=== PATIENT | male | born 1950 | race Caucasian/White ===

== ENCOUNTER 2025-01-25 18:42 | Emergency (ER) | payer SELFPAY ==
[2025-01-25 18:45] VITALS: BP 150/84
[2025-01-25 19:00] VITALS: BP 142/74; BMI 30.3
--- NOTE | 2025-01-25 19:09 | ED.GENMED ---
History of Present Illness
General
Chief Complaint: Catheter/Tube Problem
Source: patient
Exam Limitations: none
Time Seen by Provider: 01/25/25 19:05
History of Present Illness
History of Present Illness:
See MDM
Past History
Past History
ED Past Medical History: CAD, HTN, Hypercholesterolemia and [place]
ED Past Surgical History: Urological
Social History
Tobacco: Former smoker
Alcohol: Occasional
Drug: None
Personal:
Living: with family
Employment: Employed
Family History
Family History: Early CAD
Phy Exam
Physical Exam
Physical Exam:
See MDM
Course
Orders/Labs/Results
Orders:
Orders
01/25/25 19:09
Catheter [Hanson Placement- Treatment] ONCE
Reason for insertion: Outlet obstruction
01/25/25 19:19
Influenza A+B Rapid Molecular Urgent
DOUGLAS Source: Nasal Swab
Specimen Description:
01/25/25 19:45
0.9% Sodium Chloride 1000 ml [Nss] 1,000 ml IV BOLUS
LevoFLOXacin 500 MG/100 ML [Levaquin] 500 mg in 100 ml IV NOW
01/25/25 20:31
CPK [Creatine Phosphokinase] Urgent
Complete Blood Count/With Diff Urgent
Comprehensive Metabolic Panel Urgent
Urinalysis Reflex To Culture Urgent
Date Specimen was Collected: 01/25/25
Time Specimen was Collected: 19:51
Urine Microscopic Reflex Cult Urgent
Urine Culture Urgent
DOUGLAS Source: U
Specimen Description:
Date Specimen was Collected: 01/25/25
Time Specimen was Collected: 19:51
Abnormal Lab Results
01/25/25
20:31
RBC 4.03 L 10^6/uL
(4.70-6.10)
Hgb 12.0 L g/dL
(13.0-18.0)
Hct 36.7 L %
(39.0-52.0)
MCHC 32.7 L g/dL
(33.0-37.0)
Plt Count 430 H 10^3/uL
(130-400)
Abs Immat Gran (auto) 0.4 H 10^3/uL
(0-0.05)
Absolute Neuts (auto) 6.8 H 10^3/uL
(1.4-6.5)
Immature Gran % 4.4 H %
(0-0.5)
Lymphocytes % 13.5 L %
(20.5-51.1)
BUN 25 H mg/dl
(9-20)
Total Protein 6.1 L g/dl
(6.3-8.2)
Albumin 3.1 L g/dl
(3.5-5.0)
Ur Occult Blood Reflex 4+ A
(Negative)
Leukocyte Esterase Rfl 3+ A
(Negative)
Urine RBC >100 A /HPF
(0-2)
Urine WBC (Reflex) 50-60 A /HPF
(0-5)
Urine Bacteria (Reflex) Moderate A
(Negative)
Urine Albumin (Reflex) 3+ A
(Neg - Trace)
01/25/25 20:31
01/25/25 20:31
Vital Signs
Initial and Last Documented VS:
Initial Vital Signs
Temp Pulse Resp BP Pulse Ox
97.5 F 72 20 150/84 100
01/25/25 18:45 01/25/25 18:45 01/25/25 18:45 01/25/25 18:45 01/25/25 18:45
Last Documented Vital Signs
Temp Pulse Resp BP Pulse Ox
97.5 F 72 20 157/70 93
01/25/25 18:45 01/25/25 18:45 01/25/25 18:45 01/25/25 20:28 01/25/25 20:28
MDM/Problems Addressed
Differential Diagnosis Includes:
HPI and MDM Narrative:
74-year-old male presenting for evaluation of clogged Hanson catheter and cough and congestion. Patient has been dealing with cough and congestion for few weeks. It was going around the house. He feels like he is getting somewhat better. Recent
COVID test was negative his PCPs office. Patient is due to have his Hanson catheter changed. He noticed today that there is decreased drainage in the bag and that the urine appeared darker than normal.
Lungs are clear on exam. Doubt pneumonia since symptoms are improving. Will change Hanson catheter and check for influenza
Physical exam
General: Well appearing and non-toxic
HEENT: protecting airway
Neck: appears supple
CV: No evidence of cyanosis
Resp: No accessory muscle use. Lungs clear
Abd: Non-distended
: No erythema or edema noted
Extremities: No deformities
Neuro: alert
Psych: Normal affect
Skin: Intact
Problems Addressed including Acute and Chronic Conditions affecting care:
1. Hanson catheter clogged
Acuity: acute
Prognosis: stable
Details: Will change Hanson catheter
2. Cough and congestion
Acuity: acute
Prognosis: stable
Details: Symptoms are improving. Will check for influenza
Updates
Urinalysis is dark. There is significant amount of sediment on the catheter which is abnormal for the patient. Will start Levaquin, start IV fluids and obtain basic blood work
White blood cell count normal. LFTs and creatinine normal. Will discharge on Levaquin discussed follow-up
Differential Diagnosis (but not limited to): Viral syndrome, clogged Hanson catheter
Testing considered: Chest x-ray but lungs are clear and symptoms are improving
Drug therapy (if applicable): OTC meds, please see d/c instruction regarding Rx drugs
Amount and/or Complexity of Data Reviewed
Clinical info obtained from: Patient
External data reviewed: N/A
Labs I independently reviewed (but not limited to): Creatinine normal, CPK normal, LFTs normal, no leukocytosis
Radiology: N/A
Pulse Ox: not hypoxic
EKG independently reviewed: N/A
Flying Squad Worker: N/A
Critical Care: N/A
Risk of Complication:
Social Determinants of health: Good social support
Discussed with other providers: N/A
Escalation of Care includes Admit/Obs: After being observed in the Emergency Department, pt stable for discharge.
Occasional wrong word or 'sound a like' substitutions may have occurred due to the inherent limitations of voice recognition software. Read the chart carefully and recognize, using context, where substitutions have occurred.
*Critical Care Note
Total Time (30-74mins, 75-104mins- exclusive of procedures): Not Applicable
ED Attending Note
-
Portions of this chart may have been created with voice recognition software.� Occasional wrong word or��sound alike� substitutions may have occurred due to the inherent limitations of voice recognition software.
Discharge Plan
Departure
Patient Disposition: Home (Routine Discharge)
Date of Disposition: 01/25/25
Time of Disposition: 21:08
Patient with high blood pressure during this ER visit?: Yes
Discharge Problem:
Cystitis, Obstructed Hanson catheter
Instructions: BLOOD PRESSURE
Prescriptions:
New
levofloxacin 500 mg Tablet
500 mg PO DAILY Qty: 6 0RF
No Action
labetalol 100 MG tablet
100 mg PO BID Qty: 30 0RF
atorvastatin 80 MG tablet
80 mg PO DAILY
aspirin 325 MG tablet,delayed release (DR/EC)
325 mg PO DAILY
tamsulosin 0.4 MG capsule
0.4 mg PO DAILY
lisinopril [Prinivil] 40 MG tablet
40 mg PO DAILY
metformin 500 MG tablet
500 mg PO BID@0800,1700 Qty: 60 0RF
(DME) blood sugar diagnostic [Accu-Chek Guide test strips] 1 EACH strip
1 ea MC ACHS Qty: 200 0RF
(DME) lancets [Accu-Chek Fastclix Lancet Drum] 1 EACH misc
1 ea MC ACHS Qty: 200 0RF
insulin aspart U-100 [Novolog FlexPen U-100 Insulin] 300 UNITS/3 ML insulin pen
7 units SC AC Qty: 5 0RF
insulin glargine [Lantus Solostar U-100 Insulin] 300 UNITS/3 ML insulin pen
20 units SC HS Qty: 5 0RF
acetaminophen 325 MG tablet
650 mg PO Q4HPRN PRN (Reason: mild pain) Qty: 60 0RF
cephalexin 500 mg capsule
500 mg PO QID 7 Days Qty: 28 0RF
Referrals:
Scar Romero DO [Family Provider] -
Activity Restrictions/Additional Instructions:
Please return for any worsening symptoms.
You may return at any time if you have further concerns.
Please follow up with your doctor at the first available appointment, preferably this week.
Thank you for choosing [facility].
Interventions
Interventions:
*Risk Screen - Suicide Last Done: 01/25/25 18:45
*General Assessment Last Done: 01/25/25 19:00
*Neglect/Abuse Screening Last Done: 01/25/25 18:45
*ED- Fall Risk Assessment Last Done: 01/25/25 19:00
*ED COVID-19 Vaccine History Last Done: 01/25/25 19:00
BE-Ffkdwi-Rperuetppk Assessment Last Done: 01/25/25 19:00
ED-Male Genitourinary Assessment Last Done: 01/25/25 19:00
ED- Pulmonary Assessment Last Done: 03/11/25 19:00
Discharge Date and Time
Print Language: CYMRAES
[2025-01-25 20:28] VITALS: BP 157/70
[2025-01-25] MEDS: NSS 1000 IV (20:36)
[2025-01-25] MEDS: LEVAQUIN 100 IV (20:37)
[2025-01-25 20:39] LABS: Urine Albumin 3+ (Neg - Trace); Urine Bilirubin Negative (Negative); Urine Character Cloudy (Clear); Urine Color Yellow; Urine Glucose Negative (Negative); Urine Ketone Negative (Negative); Urine Leukocyte 3+ (Negative); Urine Nitrite Negative (Negative); Urine Occult Blood 4+ (Negative); Urine Urobilinogen Negative (Neg - 1+)
[2025-01-25 20:41] LABS: % Basophils 0.4 % (0-2); % Immature Granulocytes 4.4 % (0-0.5); % Lymphocytes 13.5 % (20.5-51.1); % Monocytes 5.2 % (1.7-9.3); % Neutrophils 73.5 % (42.2-75.2); Absolute Eosinophils 0.3 10^3/uL (0-0.7); Absolute Immature Granulocytes 0.4 10^3/uL (0-0.05); Absolute Lymphocytes 1.3 10^3/uL (1.2-3.4); Absolute Monocytes 0.5 10^3/uL (0.1-0.6); Absolute Neutrophils 6.8 10^3/uL (1.4-6.5); Hematocrit 36.7 % (39.0-52.0); Mean Corp Hgb Conc. 32.7 g/dL (33.0-37.0); Mean Corpuscular Hgb 29.8 pg (27.0-31.0); Mean Corpuscular Volume 91.1 fL (80.0-94.0); Mean Platelet Volume 10.1 fL (7.4-10.4); Nucleated Red Blood Cells % 0 % (-); Platelet Count 430 10^3/uL (130-400); Red Blood Cell Count 4.03 10^6/uL (4.70-6.10); Red Cell Dist. Width 13.9 % (11.5-14.5); White Blood Cell Count 9.3 10^3/uL (4.8-10.8)
[2025-01-25 20:51] LABS: ALT (SGPT) 35 U/L (0-50); AST (SGOT) 31 U/L (17-59); Albumin 3.1 g/dl (3.5-5.0); Alkaline Phosphatase 94 U/L (38-126); Blood Urea Nitrogen 25 mg/dl (9-20); Calcium 8.9 mg/dl (8.4-10.2); Carbon Dioxide 25 mmol/L (22-30); Chloride 107 mmol/L (98-107); Creatine Phosphokinase 92 U/L (55-170); Estimated Creatinine Clearance 70 ml/min; Glucose 93 mg/dl (70-99); Potassium 4.6 mmol/L (3.5-5.1); Sodium 138 mmol/L (135-145); Total Bilirubin 0.6 mg/dl (0.2-1.3); Total Protein 6.1 g/dl (6.3-8.2); eGFR > 60.00
[2025-01-25 20:54] LABS: Urine Red Blood Cell >100 /HPF (0-2); Urine Squamous Cell 0-2 /LPF (Few)
[2025-01-25 20:56] LABS: Urine Uric Acid Crystals Present; Urine White Cell 50-60 /HPF (0-5)
[2025-01-25 20:57] LABS: Urine Bacteria Moderate (Negative)
[2025-01-25 21:00] VITALS: BP 155/72
[2025-01-25 21:55] VITALS: BP 182/94
== END 2025-01-25 22:28 | disposition home or self-care (01) ==
LOC: EMR 18:42
PROVIDERS: EMERGENCY PHYSICIAN Student in an Organized Health Care Education/Training Program; FAMILY PHYSICIAN Family Medicine
DX: T83.091A Other mechanical complication of indwelling urethral catheter, initial encounter (principal); N30.90 Cystitis, unspecified without hematuria; Y84.6 Urinary catheterization as the cause of abnormal reaction of the patient, or of later complication, without mention of misadventure at the time of the procedure; Y73.1 Therapeutic (nonsurgical) and rehabilitative gastroenterology and urology devices associated with adverse incidents; I10 Essential (primary) hypertension; Z87.891 Personal history of nicotine dependence
CPT/HCPCS: 99284; 96365; 51702; 80053; 81003; 81015; 82550; 85025; 87086; 87502

== ENCOUNTER 2025-01-26 07:11 | Emergency (ER) | payer SELFPAY ==
[2025-01-26 07:16] VITALS: BP 174/96
--- NOTE | 2025-01-26 07:39 | ED.GENMED ---
History of Present Illness
General
Chief Complaint: Urinary Symptoms
Source: patient and other (Significant other)
Time Seen by Provider: 01/26/25 07:29
History of Present Illness
History of Present Illness:
74-year-old male, chronic Hanson for 2 years. Blocked Hanson last evening. Hanson was replaced. Started on Levaquin. However overnight the Hanson did not appear to be working. Complaining of suprapubic pressure.
Past History
Past History
ED Past Medical History: CAD, HTN, Hypercholesterolemia and [place]
ED Past Surgical History: Urological
Social History
Tobacco: Former smoker
Alcohol: Occasional
Drug: None
Personal:
Living: with family
Employment: Employed
Family History
Family History: Early CAD
Review of Systems
Review of Systems
All Other Systems: Not applicable
Constitutional: Denies fever or chills
Phy Exam
Physical Exam
Physical Exam:
GENERAL: Alert and oriented in no apparent distress, but appears uncomfortable
CARDIAC: Regular rate and rhythm without any obvious murmurs.
LUNGS: Clear breath sounds,normal
ABDOMEN: Soft, periumbilical hernia nontender. Suprapubic fullness and tenderness
: Hanson in place. No drainage to the bag
NEUROLOGICAL: Alert and oriented , grossly non-focal
SKIN: Warm and dry
PSYCH: Normal and appropriate interaction.
Course
Orders/Labs/Results
Orders:
Orders
01/26/25 07:38
Hanson Placement- Treatment ONCE
Reason for insertion: Chronic Hanson on Admit
Vital Signs
Initial and Last Documented VS:
Initial Vital Signs
Temp Pulse Resp BP Pulse Ox
97.6 F 81 16 174/96 98
01/26/25 07:16 01/26/25 07:16 01/26/25 07:16 01/26/25 07:16 01/26/25 07:16
Last Documented Vital Signs
Temp Pulse Resp BP Pulse Ox
97.6 F 77 16 156/88 97
01/26/25 07:16 01/26/25 11:18 01/26/25 11:18 01/26/25 11:18 01/26/25 11:18
MDM/Problems Addressed
Differential Diagnosis Includes:
Hanson clearly obstructed. Instead of flushing we will place a Hanson.
*Pulse Oximetry
Patient hypoxic: no
*Critical Care Note
Total Time (30-74mins, 75-104mins- exclusive of procedures): Not Applicable
Data Reviewed
Review of Other/Old Records Reveals: Labs, Records, Testing and Other (ED notes)
Update Note
Update Note:
0900... Draining well. Nontoxic. Abdomen benign. Will observe for another hour
1110... Functioning well. No issues. Discharged to follow-up. Nothing clinically to suspect acute systemic infectious issue
ED Attending Note
-
Portions of this chart may have been created with voice recognition software.� Occasional wrong word or��sound alike� substitutions may have occurred due to the inherent limitations of voice recognition software.
Discharge Plan
Departure
Patient Disposition: Home (Routine Discharge)
Date of Disposition: 01/26/25
Time of Disposition: 11:11
Patient with high blood pressure during this ER visit?: Yes
Discharge Problem:
Blocked Hanson catheter
Instructions: How to Care for Your Hanson Catheter, Male, BLOOD PRESSURE
Prescriptions:
No Action
aspirin 325 MG tablet,delayed release (DR/EC)
325 mg PO DAILY
tamsulosin 0.4 MG capsule
0.4 mg PO DAILY
insulin glargine [Lantus Solostar U-100 Insulin] 300 UNITS/3 ML insulin pen
20 units SC HS Qty: 5 0RF
levofloxacin 500 mg Tablet
500 mg PO DAILY Qty: 6 0RF
labetalol 200 mg Tablet
400 mg PO BID
ibuprofen 200 mg Tablet
600 mg PO Q6HPRN PRN (Reason: MILD PAIN)
lisinopril 40 mg Tablet
40 mg PO DAILY
finasteride 5 mg Tablet
5 mg PO DAILY
Referrals:
Vic Torres MD [Active] - Follow up in 2-3 days
Scar Romero DO [Family Provider] -
Activity Restrictions/Additional Instructions:
Return with any concerns including recurrent blockage, fever chills abdominal pain etc.
Interventions
Interventions:
*Risk Screen - Suicide Last Done: 01/26/25 07:16
*General Assessment Last Done: 01/26/25 08:25
*Neglect/Abuse Screening Last Done: 01/26/25 07:16
*ED- Fall Risk Assessment Last Done: 01/26/25 08:25
*ED COVID-19 Vaccine History Last Done: 01/26/25 08:25
*Nursing Disposition Last Done: 01/26/25 11:18
ED-Male Genitourinary Assessment Last Done: 01/26/25 08:25
Discharge Date and Time
Discharge Date/Time: 01/26/25 11:22
Print Language: PERUVIAN
[2025-01-26 11:18] VITALS: BP 156/88
== END 2025-01-26 11:22 | disposition home or self-care (01) ==
LOC: EMR 07:11
PROVIDERS: EMERGENCY PHYSICIAN Emergency Medicine; FAMILY PHYSICIAN Family Medicine
DX: T83.091A Other mechanical complication of indwelling urethral catheter, initial encounter (principal); Y92.9 Unspecified place or not applicable; I25.10 Atherosclerotic heart disease of native coronary artery without angina pectoris; I10 Essential (primary) hypertension; E78.00 Pure hypercholesterolemia, unspecified; I25.2 Old myocardial infarction; Z82.49 Family history of ischemic heart disease and other diseases of the circulatory system; Z87.891 Personal history of nicotine dependence
CPT/HCPCS: 99282

== ENCOUNTER 2025-02-01 04:49 | Emergency (ER) | payer SELFPAY ==
[2025-02-01 04:52] VITALS: BP 216/120
[2025-02-01 05:00] VITALS: BP 178/95
--- NOTE | 2025-02-01 05:51 | ED.GENMED ---
History of Present Illness
General
Chief Complaint: Catheter/Tube Problem
Source: patient and spouse
Exam Limitations: none
Time Seen by Provider: 02/01/25 05:32
Nursing documentation reviewed up to this point in time: agreed with
History of Present Illness
History of Present Illness:
74-year-old male presents to the emergency department complaining of Hanson catheter not draining.
Past History
Past History
ED Past Medical History: CAD, HTN, Hypercholesterolemia and [place]
ED Past Surgical History: Urological
Social History
Tobacco: Former smoker
Alcohol: Occasional
Drug: None
Personal:
Living: with family
Employment: Employed
Family History
Family History: Early CAD
Review of Systems
Review of Systems
Allergies reviewed?: Yes
All Other Systems: Not applicable
Constitutional: Reports no symptoms
EENT: Reports no symptoms
Respiratory: Reports no symptoms
Cardiac: Reports no symptoms
ABD/GI: Reports no symptoms
: Reports difficulty voiding
Musculoskeletal: Reports no symptoms
Skin: Reports no symptoms
Neurological: Reports no symptoms
Endocrine: Reports no symptoms
Hematologic/Lymphatic: Reports no symptoms
Psychiatric: Reports no symptoms
Phy Exam
Physical Exam
Physical Exam:
Physical Exam
General: no apparent distress, not acutely ill
Neck: supple. no meningeal signs. normal posterior pharynx
HEENT: Pupils equal round reactive to light, EOMI
Lungs: no acute respiratory distress.
Abdomen: Soft, nondistended
: Hanson catheter in place
Neuro: alert and oriented. no focal neurological deficits
Skin: no rash
Psychiatric: well kept. interactive and cooperative
Extremities: no edema. good distal pulses
Course
Orders/Labs/Results
Orders:
Orders
02/01/25 05:32
Hanson Placement- Treatment ONCE
Reason for insertion: Acute Retention
Vital Signs
Initial and Last Documented VS:
Initial Vital Signs
Temp Pulse Resp BP Pulse Ox
97.5 F 84 24 216/120 96
02/01/25 04:52 02/01/25 04:52 02/01/25 04:52 02/01/25 04:52 02/01/25 04:52
Last Documented Vital Signs
Temp Pulse Resp BP Pulse Ox
97.5 F 84 24 216/120 96
02/01/25 04:52 02/01/25 04:52 02/01/25 04:52 02/01/25 04:52 02/01/25 04:52
MDM/Problems Addressed
Differential Diagnosis Includes:
UTI, urinary retention
MDM/Problems Addressed:
74-year-old male with urinary retention, catheter malfunction. Hanson catheter change, draining, patient feels better.
Chronic conditions affecting care: CAD
*Pulse Oximetry
Patient hypoxic: no
*Critical Care Note
Total Time (30-74mins, 75-104mins- exclusive of procedures): Not Applicable
Data Reviewed
Further Testing Considered But Not Given:
Urinalysis not indicated, CT scan not indicated
Patient Management
Social determinants of health affecting care: Living situation and Strong social support
Escalation/DeEscalation of care consider admission/obs:
Admit not indicated
ED Attending Note
-
Portions of this chart may have been created with voice recognition software.� Occasional wrong word or��sound alike� substitutions may have occurred due to the inherent limitations of voice recognition software.
Discharge Plan
Departure
Disposition: Home (Routine Discharge)
Date of Disposition: 02/01/25
Time of Disposition: 05:55
Patient with high blood pressure during this ER visit?: Yes
Condition: Good
Instructions: How to Care for Your Hanson Catheter, Male
Prescriptions:
No Action
aspirin 325 MG tablet,delayed release (DR/EC)
325 mg PO DAILY
tamsulosin 0.4 MG capsule
0.4 mg PO DAILY
insulin glargine [Lantus Solostar U-100 Insulin] 300 UNITS/3 ML insulin pen
20 units SC HS Qty: 5 0RF
levofloxacin 500 mg Tablet
500 mg PO DAILY Qty: 6 0RF
labetalol 200 mg Tablet
400 mg PO BID
ibuprofen 200 mg Tablet
600 mg PO Q6HPRN PRN (Reason: MILD PAIN)
lisinopril 40 mg Tablet
40 mg PO DAILY
finasteride 5 mg Tablet
5 mg PO DAILY
Interventions
Interventions:
*Risk Screen - Suicide Last Done: 02/01/25 04:50
*General Assessment Last Done: 02/01/25 05:51
*Neglect/Abuse Screening Last Done: 02/01/25 04:50
*ED- Fall Risk Assessment Last Done: 02/01/25 05:15
*ED COVID-19 Vaccine History Last Done: 02/01/25 05:47
[facility] Assessment Last Done: 02/01/25 05:15
ED-Male Genitourinary Assessment Last Done: 02/01/25 05:15
Discharge Date and Time
Print Language: LITHUANIAN
[2025-02-01 06:30] VITALS: BP 187/100
[2025-02-01 07:00] VITALS: BP 173/76; BMI 28.5
[2025-02-01 08:00] VITALS: BP 188/71
== END 2025-02-01 09:09 | disposition home or self-care (01) ==
LOC: EMR 04:49
PROVIDERS: EMERGENCY PHYSICIAN Emergency Medicine; FAMILY PHYSICIAN Family Medicine
DX: Z46.6 Encounter for fitting and adjustment of urinary device (principal); I25.10 Atherosclerotic heart disease of native coronary artery without angina pectoris; I10 Essential (primary) hypertension; E78.00 Pure hypercholesterolemia, unspecified; I25.2 Old myocardial infarction; Z87.891 Personal history of nicotine dependence
CPT/HCPCS: 51702; 99283